=== PATIENT | male | born 1935 | race Caucasian/White ===

== ENCOUNTER 2018-09-06 17:32 | Observation (INO) | payer MEDICARE, OTHER, SELFPAY ==
[2018-09-06] VITALS (7 sets, daily range): BP systolic 116–133; BP diastolic 45–83; PULSE 63–67; RESP 16–18; TEMP 36.7–36.8; O2SAT 97–100; BMI 31.8; BMI 32.0
[2018-09-06 19:02] LABS: Bacteria 0 SEEN /hpf (None Seen); Mucous, Urine 0 SEEN /hpf (<or=2+); Red Blood Cells-Urine 0 SEEN /hpf (0-5); Squamous Epithelial Cells - UA 0 SEEN /hpf (0-5)
[2018-09-06 19:05] LABS: Absolute Lymphocyte Count 0.79 X10^3/ul (0.83-4.51); Absolute Neutrophil Count 2.6 X10^3/uL (2.0-7.7); Basophil# 0.01 X10^3/uL; Basophil% 0.3 % (0-1); Eosinophil# 0.15 X10^3/uL; Hemoglobin 9.9 g/dl (13.0-16.5); Lymphocyte # 0.79 X10^3/ul (4.0); Lymphocyte % 20.8 % (19-41); Mean Corp Hgb Conc 31.9 g/gl (32-36); Mean Corpuscular Hgb 31.5 pg (27.0-32.0); Mean Corpuscular Volume 98.7 fL (80-94); Mean Platelet Vol. 11.1 fl (6.2-12.0); Monocyte# 0.24 X10^3/uL; Monocyte% 6.3 % (0-10); Neutrophil # 2.59 X10^3/uL (2.7-7.7); Neutrophil % 68.3 % (47-70); Platelet Count 77 K/mm3 (150-450); RBC Distribution Width CV 16.9 % (11.6-14.6); RBC Distribution Width SD 60.7 fl (35.1-43.9); Red Blood Count 3.14 M/mm3 (4.6-6.2); White Blood Count 3.8 K/mm3 (4.4-11.0)
[2018-09-06 19:09] LABS: Color, Urine Yellow (Yellow); Glucose, Dipstick Normal (Normal); Ketone-Dipstick Negative (Negative); Leukocyte Esterase-Dipstick 25 /ul (Negative); Nitrite-Dipstick Negative (Negative); Occult Blood-Urine Negative /ul (Negative); Protein-Dipstick 30 mg/dl (Negative); Specific Gravity, Urine 1.015 (1.002-1.030); Urine Bilirubin Dipstick Negative (Negative); Urine Clarity Clear (Clear); Urine Urobilinogen Normal (Normal)
[2018-09-06 19:17] LABS: White Blood Cells 0-5 SEEN /hpf (0-5)
[2018-09-06 19:23] LABS: AST(SGOT) 40 U/L (15-37); Alanine Aminotransfer ALT/SGPT 31 U/L (16-61); Albumin, Serum 3.8 g/dL (3.2-5.0); Alkaline Phosphatase 128 U/L (45-117); Anion Gap 7 (5-15); BUN 19 mg/dL (7-18); Calcium,Total 8.8 mg/dL (8.5-10.1); Chloride 110 mmol/L (98-107); Creatinine, Serum 1.12 mg/dL (0.70-1.30); EST Glomerular Filtration Rate 67 mL/min (>60); Est Glom Filt Rate - Afr Amer 81 mL/min (>60); Glucose 80 mg/dL (74-106); Potassium 3.7 mmol/L (3.5-5.1); Protein, Total 7.8 g/dL (6.4-8.2); Sodium Level 143 mmol/L (136-145)
[2018-09-06 20:10] LABS: International Normalized Ratio 1.3; Prothrombin Time (Protime)PT. 16.6 SECONDS (11.7-14.9)
[2018-09-06 20:18] LABS: POSITIVE COUNT NO; POSITIVE DIFFERENTIAL NO; POSITIVE MORPHOLOGY NO
--- NOTE | 2018-09-06 20:55 | HP.PCM_ITS ---
Problem List (1) Penile bleeding Status: Acute History of Present Illness Date of Admission: 09/06/18 Chief Complaint: bleeding at perineal area The patient is a 83 year old M with a significant history of CAD status post CABG on May 18, 1990; hypertension; permanent pacemaker with ICD; basal cell carcinoma; bladder cancer status post tumor removal and chemotherapy who presents with 3 days of progressively worsening intermittent bleeding in his perineal area. Patient is unsure whether the bleeding is coming from his penile area or from his rectum. Associated with his symptoms is weakness. Past Medical History Medical History: Medical History (Last Updated 09/06/18 @ 21:40 by Tien Escalante MD) Hypertension I10 Allergies No Known Allergies Allergy (Verified 09/06/18 17:36) Home Medications: Ambulatory Orders Medication Instructions Recorded Allopurinol [Zyloprim] 100 mg PO BIDCM 07/17/14 Aspirin E.C. [Ecotrin] 81 mg PO DAILY@0800 07/17/14 Calcipotriene/Betamethasone 60 gm TP DAILY 07/17/14 [Calcipotriene-Betameth Dp Oint] Clobetasol Propionate/Emoll 30 gm TP DAILY PRN PRN 07/17/14 [Clobetasol Emollient 0.05% Crm] Clobetasol Propionate/Emoll 30 gm TP DAILY PRN PRN 07/17/14 [Clobetasol Emollient 0.05% Crm] [place] Tar [Cutar] 177 ml TP DAILY PRN PRN 07/17/14 Finasteride [Proscar] 5 mg PO DAILY 07/17/14 Fluticasone 0.05% [Flonase Nasal 2 spray NASAL DAILY PRN PRN 07/17/14 [place]] Fluticasone Propionate [Cutivate] 30 gm TP BID 07/17/14 Furosemide [Lasix] 20 mg PO DAILY 07/17/14 Glimepiride [Amaryl] 2 mg PO DAILY 07/17/14 Ketoconazole [Nizoral] 120 ml TP DAILY PRN PRN 07/17/14 Lidocaine 2% Viscous [Xylocaine 15 ml GT 4X/DAY PRN PRN 07/17/14 Viscous] Losartan Potassium [Cozaar] 100 mg PO DAILY 07/17/14 Metformin HCl [Glucophage] 1,000 mg PO BIDCM 07/17/14 Metoprolol Tartrate [Lopressor 50 mg PO BID 07/17/14 (beta adrian)] Multivit-Min/FA/Lycopene/Lut 1 each PO DAILY 07/17/14 [Centrum Silver Tablet] Mupirocin [Bactroban] 1 applic TOPICAL TID 07/17/14 Nitroglycerin [Nitrostat] 0.4 mg SUBLINGUAL Q5M PRN 07/17/14 Olopatadine HCl [Patanol] 1 drop EACH EYE BID 07/17/14 Phenylephrine HCl/Prometh HCl 5 ml PO Q4H PRN PRN 07/17/14 [Promethazine Vc Syrup] Simvastatin [Zocor] 20 mg PO QHS 07/17/14 Spironolactone [Aldactone] 50 mg PO DAILY 07/17/14 Tamsulosin HCl [Flomax] 0.4 mg PO QHS 07/17/14 Zolpidem Tartrate [Ambien] 10 mg PO QHS PRN PRN 07/17/14 Hydrocodone Bitart/Apap 5-325 0.5 - 1 tablet PO Q4H PRN PRN #20 03/03/15 [[place] 5MG-325MG] tablet Surgical History: coronary bypass surgery, - - Tumor removal from bladder. Smoking Status: Former smoker Alcohol: Occasional - *Family History Maternal Family History: Family History (Last Updated 09/06/18 @ 21:40 by Tien Escalante MD) Sister Basal cell carcinoma Review of Systems Constitutional: Reports: Weakness HEENT: Denies: Head Aches, Sinus Congestion, Sinus Drainage Cardiovascular: Denies: Chest Pain, Palpitations Respiratory: Denies: Cough, Shortness of breath at rest, Sputum production Gastrointestinal: Denies: Abdominal Pain, Nausea, Vomiting Genitourinary: Denies: Dysuria Musculoskeletal: Denies: Joint Pain, Joint Tenderness Skin: Denies: Rash, Wounds Neurological: Denies: Numbness, Tingling, Focal weakness Psychiatric: Denies: Anxiety, Depression, Homicidal Ideations, Suicidal Ideations Hematologic/ Lymphatic: Denies: Easy Bruising, Easy Bleeding VTE Information - Inpt Only VTE Present on Admission: No VTE Mechan Device Prophylaxis: SCD's VTE Pharm Prophylaxis ordered?: No Patient Problems: Active and Suspected Problems (Last Updated 09/06/18 @ 21:40 by Tien Escalante MD) Penile bleeding (Acute) - Physical Exam General: Alert, Oriented x3, Cooperative HEENT: Atraumatic, PERRLA, EOMI, Normocephalic Neck: Supple, No JVD, Negative Carotid Bruits Lungs: Clear to auscultation, Normal air movement Cardiovascular: Regular rate, No murmurs Abdomen: Bowel Sounds Present, Soft, Non Tender, - - Glan penis with bruises. Old blood on rectum. Extremities: No edema, Capillary Refill Less than 3 Seconds Skin: No rashes, No breakdown Musculoskeletal: No Tenderness to Palpation of Joints or Extremities Neurological: Neuro grossly intact, - - HARD OF HEARING Psych/Mental Status: Normal Affect, Appropriate Vital Signs Temp Pulse Resp BP Pulse Ox 98.3 F 63 18 116/52 L 97 09/06/18 17:33 09/06/18 18:48 09/06/18 17:33 09/06/18 19:55 09/06/18 19:55 Oxygen Delivery Method Room Air Weight: 100.698 kg Body Mass Index (BMI) 31.8 Microbiology Past 72 Hours 09/06/18 19:45 Stool Occult Blood (VINI) - Final Stool Laboratory Tests Past 24 Hrs 09/06/18 09/06/18 09/06/18 18:50 18:50 18:50 WBC 3.8 L RBC 3.14 L Hgb 9.9 L Hct 31.0 L MCV 98.7 H MCH 31.5 MCHC 31.9 L RDW 16.9 H RDW Differential 60.7 H Plt Count 77 L MPV 11.1 Immature Gran % (Auto) 0.300 Neut % (Auto) 68.3 Lymph % (Auto) 20.8 [place] % (Auto) 6.3 Eos % (Auto) 4.0 Baso % (Auto) 0.3 Absolute Neuts (auto) 2.6 Absolute Lymphs (auto) 0.79 L Total Counted Not Reportable PT 16.6 H INR 1.3 APTT 34.0 Sodium 143 Potassium 3.7 Chloride 110 H Carbon Dioxide 26.0 Anion Gap 7 BUN 19 H Creatinine 1.12 Estim Creat Clear Calc 52.50 Est GFR (MDRD) Af Amer 81 Est GFR (MDRD) Non-Af 67 BUN/Creatinine Ratio 17.0 Glucose 80 Calcium 8.8 Total Bilirubin 1.10 H AST 40 H ALT 31 Alkaline Phosphatase 128 H Total Protein 7.8 Albumin 3.8 Globulin 4.0 Albumin/Globulin Ratio 1.0 Urine Color Urine Clarity Urine pH Ur Specific [place] Urine Protein Urine Glucose (UA) Urine Ketones Urine Occult Blood Urine Nitrite Urine Bilirubin Urine Urobilinogen Ur Leukocyte Esterase Urine RBC Urine WBC Ur Squamous Epith Cells Urine Bacteria Urine Mucus 09/06/18 18:50 WBC RBC Hgb Hct MCV MCH MCHC RDW RDW Differential Plt Count MPV Immature Gran % (Auto) Neut % (Auto) Lymph % (Auto) [place] % (Auto) Eos % (Auto) Baso % (Auto) Absolute Neuts (auto) Absolute Lymphs (auto) Total Counted PT INR APTT Sodium Potassium Chloride Carbon Dioxide Anion Gap BUN Creatinine Estim Creat Clear Calc Est GFR (MDRD) Af Amer Est GFR (MDRD) Non-Af BUN/Creatinine Ratio Glucose Calcium Total Bilirubin AST ALT Alkaline Phosphatase Total Protein Albumin Globulin Albumin/Globulin Ratio Urine Color Yellow Urine Clarity Clear Urine pH 6.0 Ur Specific [place] 1.015 Urine Protein 30 H Urine Glucose (UA) Normal Urine Ketones Negative Urine Occult Blood Negative Urine Nitrite Negative Urine Bilirubin Negative Urine Urobilinogen Normal Ur Leukocyte Esterase 25 H Urine RBC 0 SEEN Urine WBC 0-5 SEEN Ur Squamous Epith Cells 0 SEEN Urine Bacteria 0 SEEN Urine Mucus 0 SEEN Assessment/Plan All Active Problems (Last Updated 09/06/18 @ 21:40 by Tien Escalante MD) Penile bleeding (Acute) The patient is a 83 year old M with a significant history of CAD status post CABG on May 18, 1990; hypertension; permanent pacemaker with ICD; basal cell carcinoma; bladder cancer status post tumor removal and chemotherapy who presents with 3 days of progressively worsening bleeding in his perineal area and found to have bruises on his glans penis.. Penile bleeding Physical examination showed bruises on his glans penis. His bleeding probably is from his glans penis. Occult stools X 1 unremarkable at the ED. With bruised glans penis no further occult stools ordered at this time. Will apply Bactroban at the glans penis 3 times daily. Gentle fluid hydration with NSS 60 mL's per hour. CBC in a.m. Okay to discharge patient if his H&H is stable. Will hold aspirin. Orthostatics were negative at the ED Orthostatic vitals x 1 in am. Hold home blood pressure meds. Thrombocytopenia Patient saw Dr. Hernandez outpatient and was asked to be taking iron supplement and follow-up with PCP for monitoring. Patient reported that his platelets recently was 74 and then it went to 88. On admission his platelet is 77; which is stable. CBC in a.m. If CBC stable patient can be discharged home and follow-up with PCP. CAD status post CABG Aspirin held. Hypertension His blood pressure on admission was fairly controlled. We will hold home anti-hypertensive medication because of bleeding As needed labetalol ordered. Diabetes mellitus On un-reconciled home medication is metformin and glimepiride. Blood glucose on admission was 80 on BMP. We will order Accu-Cheks Q12 with no correction scale Basal cell carcinoma of the face Patient has established care outpatient; and he will follow up outpatient. DVT prophylaxis SCD. No chemical thromboprophylaxis because of bleeding. Miscellaneous : Patient will let a family member bring his home list. If not we can request from [facility] if patient continue to stay at the hospital. Code Visit OBSV E&M: [id number] Initial observation care L3
--- NOTE | 2018-09-06 21:03 | ED.VISSUMM ---
- ER Visit Summary Date of Service: 09/06/18 Chief Complaint: Blood in underwear History of Present Illness: The patient is a 83 M who noted blood in his underwear starting 3 days ago. It started with a small rust colored tinged and then has become more pronounced over the last 3 days. This is an intermittent finding for him. His urine seemed to be more dark than usual, but he did not notice any bright red blood. He has not noticed any blood in his stool. He is not sure where the blood is coming from. He denies any pain or fevers. He never had this before. He does take aspirin but denies any other blood thinners. He has a remote history of bladder cancer and bladder surgery. He has a history of pancytopenia. He has seen Dr. Hernandez for low platelets. He was advised to follow-up with his primary care doctor for monitoring. He was also started on iron for anemia. Physical Examination: Afebrile and vital signs unremarkable. The patient is nontoxic and in no acute distress. Sitting comfortably. Skin is slightly pale but otherwise unremarkable. Heart regular rate and rhythm. Lungs clear. Abdomen soft and nontender. Rectal exam was nontender with no blood. and perineal exam did not show evidence of bleeding. Test Results: White count stable at 3.5. Hemoglobin stable 9.9. Platelets are 77. He said they have been running from the 70s up to 80. Metabolic panel and coags unremarkable. Fecal Hemoccult testing was negative. Urinalysis showed no blood. Emergency Department Course and Treatment: Patient remained stable. His orthostatics were negative. I am not sure where the patient is experiencing bleeding or if this is bleeding at all. He is stable and his lab work appears to be stable. I am concerned however given his thrombocytopenia. If he does have GI bleeding and his platelets drop any further, he may need transfusion. I am also concerned given his age. I did contact the hospitalist who will observe the patient for any signs of bleeding. Treatment Plan: As above Disposition: Medical surg observation on telemetry Impression: 1. Suspected GI bleed 2. Thrombocytopenia This note was generated with [employer] dictation software. It may contain incorrect words, spelling, and punctuation that were not noted in review of the chart prior to signing ED Disposition - Plan for ED Patient: Chief Complaint: GI Bleed
[2018-09-06] MEDS: 0.45% Normal Saline 1,000 ML 60 ML IV (22:12)
[2018-09-06] MEDS: Mupirocin Ointment 22gm Tube 1 APPLIC TOPICAL (22:49)
[2018-09-07 02:29] VITALS: PULSE 65
[2018-09-07 03:08] VITALS: BP 124/54; PULSE 72; RESP 14; TEMP 36.9; O2SAT 97
[2018-09-07] MEDS: Mupirocin Ointment 22gm Tube 1 APPLIC TOPICAL ×2 (05:48→14:31)
[2018-09-07 06:06] LABS: Bedside Glucose 85 mg/dL (70-110)
[2018-09-07 06:35] LABS: Absolute Lymphocyte Count 0.62 X10^3/ul (0.83-4.51); Absolute Neutrophil Count 1.8 X10^3/uL (2.0-7.7); Basophil# 0.01 X10^3/uL; Basophil% 0.4 % (0-1); Eosinophil# 0.09 X10^3/uL; Eosinophils% 3.3 % (0-5); Hematocrit 27.5 % (40-54); Hemoglobin 8.8 g/dl (13.0-16.5); Lymphocyte # 0.62 X10^3/ul (4.0); Lymphocyte % 22.5 % (19-41); Mean Corpuscular Hgb 31.8 pg (27.0-32.0); Mean Corpuscular Volume 99.3 fL (80-94); Mean Platelet Vol. 10.2 fl (6.2-12.0); Monocyte# 0.25 X10^3/uL; Monocyte% 9.1 % (0-10); Neutrophil # 1.79 X10^3/uL (2.7-7.7); Neutrophil % 64.7 % (47-70); Platelet Count 64 K/mm3 (150-450); RBC Distribution Width CV 16.3 % (11.6-14.6); RBC Distribution Width SD 56.5 fl (35.1-43.9); Red Blood Count 2.77 M/mm3 (4.6-6.2); White Blood Count 2.8 K/mm3 (4.4-11.0)
[2018-09-07 06:41] LABS: POSITIVE COUNT NO; POSITIVE DIFFERENTIAL NO; POSITIVE MORPHOLOGY NO
[2018-09-07 07:09] VITALS: O2SAT 94
[2018-09-07 07:30] VITALS: BP 126/41; PULSE 72; RESP 18; TEMP 37.2; O2SAT 95
[2018-09-07 11:30] VITALS: BP 133/42; PULSE 72; RESP 18; TEMP 37.2; O2SAT 97
[2018-09-07] MEDS: 0.45% Normal Saline 1,000 ML 60 ML IV (12:32)
--- NOTE | 2018-09-07 13:20 | PCM.DC ---
- Discharge Diagnoses Current Active Problems: Current Active and Chronic Problems (Last Updated 09/06/18 @ 21:40 by Tien Escalante MD) Penile bleeding (Acute) You will use the following diet at home:: No restrictions Your food should be the consistency of: Regular Your liquids should be the consistency of: Regular/Thin Discharge Activity: Return to Normal Activity Allergies/Adverse Reactions: Allergies No Known Allergies Allergy (Verified 09/06/18 17:36) Medications to take at Discharge Allopurinol [Zyloprim] 100 mg PO BIDCM 07/17/14 Finasteride [Proscar] 5 mg PO DAILY 07/17/14 Fluticasone 0.05% [Flonase Nasal [place]] 2 spray NASAL DAILY PRN PRN 07/17/14 Furosemide [Lasix] 20 mg PO DAILY 07/17/14 Glimepiride [Amaryl] 2 mg PO DAILY 07/17/14 Lidocaine 2% Viscous [Xylocaine Viscous] 15 ml PO 4X/DAY PRN PRN 07/17/14 Multivit-Min/FA/Lycopene/Lut [Centrum Silver Tablet] 1 each PO DAILY 07/17/14 Nitroglycerin [Nitrostat] 0.4 mg SUBLINGUAL Q5M PRN 07/17/14 Simvastatin [Zocor] 20 mg PO QHS 07/17/14 Spironolactone [Aldactone] 50 mg PO DAILY 07/17/14 Acetaminophen [Tylenol Extra Strength] 500 mg PO Q6H PRN PRN 09/07/18 Calcium 600-Vit D3 200 Tablet 1 tab PO DAILY 09/07/18 Ferrous Sulfate 1 tab PO DAILY 09/07/18 Fluocinonide/Emollient Base [Fluocinonide-E 0.05% Cream] 1 applicatio TOPICAL BID 09/07/18 Isosorbide Mononitrate [Isosorbide Mononitrate ER] 30 mg PO DAILY 09/07/18 Metformin HCl [Glucophage] 850 mg PO BIDCM 09/07/18 Metoprolol Tartrate 25 mg PO BID 09/07/18 Mometasone Furoate [[place]] 15 gm TP DAILY PRN 09/07/18 Orders to be completed after discharge: HH, Hemoglobin & Hematocrit Time Frame: 5 Days, Location: Laboratory Primary Care Physician: Roberto Hoang MD [Primary Care Provider] - Please follow up with your Primary Care Physician in: 3-5 days Test Results: Test results from this visit will be discussed in further detail at your follow-up appointment, if applicable. Proposed Discharge Date: 09/07/18
--- NOTE | 2018-09-07 13:24 | PCM.DC.SUM ---
<Derek Camp - Last Filed: 09/07/18 13:24> Discharge Date and Diagnosis - Problem List Patient Problems: Active and Suspected Problems (Last Updated 09/06/18 @ 21:40 by Tien Escalante MD) Penile bleeding (Acute) Date of Admission: 09/06/18 Date of Discharge: 09/07/18 - Primary Discharge Diagnosis Active and Suspected Problems (Last Updated 09/06/18 @ 21:40 by Tien Escalante MD) Penile bleeding (Acute) 2/2 bruising around glans and low platelets, aspirin therapy Anemia unclear whether acute vs chronic Pancytopenia Hx Bladder and Prostate Cancer CAD prior CABG Pacer/AICD Basal cell carcinoma Hospital Course and Treatment Operations: None Procedures: None Summary of Care Provided: Hospital course: The patient is a 83 year old M with pmhx as above on aspirin for CAD and with low platelets (pancytopenic), hx prostate and bladder cancer who presented to the ER with complaints of blood in the toil from unclear source. He was not sure if this was urethral, rectal, or otherwise. He had noticed some blood in his underwear as well. He denies pain, irritation, or wounds. He was pancytopenic. He was admitted to monitor for further bleeding and for worsening anemia. Aspirin was discontinued. He complained of more blood in the toil. On exam he appeared to have bleeding from the skin of the glans of the penis where he had bilateral bruising. There was some blood on his leg. Urinalysis showed no blood in his urine. Stool occult blood was negative. The bruising was felt to be the site of bleeding, possibly due to thrombocytopenia and aspirin. He denies any recent sex in years, and had no other mechanical trauma to the area including masturbation, abrasions, blunt trauma, etc, and continued to not have symptoms like pain, pruritis, or burning. He had no further bleeding after that and no dizziness/LH/SOB. We advised that he follow up with his PCP in 3-5 days and in the meantime discontinue aspirin. He will need an CBC in 3 days and to monitor for further bleeding. He was discharged home in stable condition. This patient was seen by Derek Camp PA-C under the supervision of Doctor Wall. [] Patient Problems: Active and Suspected Problems (Last Updated 09/06/18 @ 21:40 by Tien Escalante MD) Penile bleeding (Acute) - Physical Exam General: Alert, Oriented x3, Cooperative HEENT: Atraumatic, PERRLA, EOMI, Normocephalic Neck: Supple, No JVD, Negative Carotid Bruits Lungs: Clear to auscultation, Normal air movement Cardiovascular: Regular rate, No murmurs Abdomen: Bowel Sounds Present, Soft, Non Tender Extremities: No edema, Capillary Refill Less than 3 Seconds Skin: - - glans penis bilateral bruising, scant old blood present Musculoskeletal: No Tenderness to Palpation of Joints or Extremities Neurological: Cranial nerves II-XII grossly intact Psych/Mental Status: Normal Affect, Appropriate, Alert and oriented to time, place, person, mood and affect Vital Signs Temp Pulse Resp BP Pulse Ox 99.0 F 72 18 133/42 H 97 09/07/18 11:30 09/07/18 11:30 09/07/18 11:30 09/07/18 11:30 09/07/18 11:30 Oxygen Delivery Method Room Air Weight: 223 lb 1.725 oz Body Mass Index (BMI) 32.0 Intake and Output for Last 24 Hours 09/05/18 09/06/18 09/07/18 23:59 23:59 23:59 Intake Total 2013.1 Balance 2013. Microbiology Past 72 Hours 09/06/18 19:45 Stool Occult Blood (VINI) - Final Stool Laboratory Tests Past 24 Hrs 09/06/18 09/06/18 09/06/18 18:50 18:50 18:50 WBC 3.8 L RBC 3.14 L Hgb 9.9 L Hct 31.0 L MCV 98.7 H MCH 31.5 MCHC 31.9 L RDW 16.9 H RDW Differential 60.7 H Plt Count 77 L MPV 11.1 Immature Gran % (Auto) 0.300 Neut % (Auto) 68.3 Lymph % (Auto) 20.8 [place] % (Auto) 6.3 Eos % (Auto) 4.0 Baso % (Auto) 0.3 Absolute Neuts (auto) 2.6 Absolute Lymphs (auto) 0.79 L Total Counted Not Reportable PT 16.6 H INR 1.3 APTT 34.0 Sodium 143 Potassium 3.7 Chloride 110 H Carbon Dioxide 26.0 Anion Gap 7 BUN 19 H Creatinine 1.12 Estim Creat Clear Calc 52.50 Est GFR (MDRD) Af Amer 81 Est GFR (MDRD) Non-Af 67 BUN/Creatinine Ratio 17.0 Glucose 80 Calcium 8.8 Total Bilirubin 1.10 H AST 40 H ALT 31 Alkaline Phosphatase 128 H Total Protein 7.8 Albumin 3.8 Globulin 4.0 Albumin/Globulin Ratio 1.0 Urine Color Urine Clarity Urine pH Ur Specific [place] Urine Protein Urine Glucose (UA) Urine Ketones Urine Occult Blood Urine Nitrite Urine Bilirubin Urine Urobilinogen Ur Leukocyte Esterase Urine RBC Urine WBC Ur Squamous Epith Cells Urine Bacteria Urine Mucus 09/06/18 09/07/18 18:50 06:00 WBC 2.8 L RBC 2.77 L Hgb 8.8 L Hct 27.5 L MCV 99.3 H MCH 31.8 MCHC 32.0 RDW 16.3 H RDW Differential 56.5 H Plt Count 64 L MPV 10.2 Immature Gran % (Auto) 0.000 Neut % (Auto) 64.7 Lymph % (Auto) 22.5 [place] % (Auto) 9.1 Eos % (Auto) 3.3 Baso % (Auto) 0.4 Absolute Neuts (auto) 1.8 L Absolute Lymphs (auto) 0.62 L Total Counted Not Reportable PT INR APTT Sodium Potassium Chloride Carbon Dioxide Anion Gap BUN Creatinine Estim Creat Clear Calc Est GFR (MDRD) Af Amer Est GFR (MDRD) Non-Af BUN/Creatinine Ratio Glucose Calcium Total Bilirubin AST ALT Alkaline Phosphatase Total Protein Albumin Globulin Albumin/Globulin Ratio Urine Color Yellow Urine Clarity Clear Urine pH 6.0 Ur Specific [place] 1.015 Urine Protein 30 H Urine Glucose (UA) Normal Urine Ketones Negative Urine Occult Blood Negative Urine Nitrite Negative Urine Bilirubin Negative Urine Urobilinogen Normal Ur Leukocyte Esterase 25 H Urine RBC 0 SEEN Urine WBC 0-5 SEEN Ur Squamous Epith Cells 0 SEEN Urine Bacteria 0 SEEN Urine Mucus 0 SEEN POC Glucose 09/07/18 05:46 POC Glucose 85 Discharge Diet: Low fat/ Low Cholesterol, 2000 mg Sodium Diet Discharge Activity: Return to Normal Activity Home Medications: Medications to take at Discharge Allopurinol [Zyloprim] 100 mg PO BIDCM 07/17/14 Finasteride [Proscar] 5 mg PO DAILY 07/17/14 Fluticasone 0.05% [Flonase Nasal [place]] 2 spray NASAL DAILY PRN PRN 07/17/14 Furosemide [Lasix] 20 mg PO DAILY 07/17/14 Glimepiride [Amaryl] 2 mg PO DAILY 07/17/14 Lidocaine 2% Viscous [Xylocaine Viscous] 15 ml PO 4X/DAY PRN PRN 07/17/14 Multivit-Min/FA/Lycopene/Lut [Centrum Silver Tablet] 1 each PO DAILY 07/17/14 Nitroglycerin [Nitrostat] 0.4 mg SUBLINGUAL Q5M PRN 07/17/14 Simvastatin [Zocor] 20 mg PO QHS 07/17/14 Spironolactone [Aldactone] 50 mg PO DAILY 07/17/14 Acetaminophen [Tylenol Extra Strength] 500 mg PO Q6H PRN PRN 09/07/18 Calcium 600-Vit D3 200 Tablet 1 tab PO DAILY 09/07/18 Ferrous Sulfate 1 tab PO DAILY 09/07/18 Fluocinonide/Emollient Base [Fluocinonide-E 0.05% Cream] 1 applicatio TOPICAL BID 09/07/18 Isosorbide Mononitrate [Isosorbide Mononitrate ER] 30 mg PO DAILY 09/07/18 Metformin HCl [Glucophage] 850 mg PO BIDCM 09/07/18 Metoprolol Tartrate 25 mg PO BID 09/07/18 Mometasone Furoate [Elocon] 15 gm TP DAILY PRN 09/07/18 Other Amb Orders: CBC-Complete Blood Cnt No Diff Time Frame: 3 Days, Location: Laboratory HH, Hemoglobin & Hematocrit Time Frame: 5 Days, Location: Laboratory Primary Care Physician: Roberto Hoang MD [Primary Care Provider] - Please follow up with your Primary Care Physician in: 3-5 days Disposition: Home Minutes spent on discharge:: 35 Patient Condition:: Stable Medical Necessity - Tobacco Use Smoking Status: Former smoker Meaningful Use Info Meaningful Use Diagnoses (Choose all that apply): None applicable <Randal Wall E - Last Filed: 09/07/18 13:47> Discharge Date and Diagnosis - Primary Discharge Diagnosis Active and Suspected Problems (Last Updated 09/06/18 @ 21:40 by Tien Escalante MD) Penile bleeding (Acute) Hospital Course and Treatment Summary of Care Provided: Hospitalist note: Discharge summary above reviewed and I agree with above discharge plan. Patient was admitted for blood in the toilet from unclear source. He noticed some blood in his underwear. He was found to have pancytopenia with mild leukopenia, thrombocytopenia and normocytic anemia. His absolute neutrophil count was normal. His hemoglobin back in 2014 was 9.8 g/dL. During this hospital stay, it was 9.9 g/dL on admission and came down to 8.8 g/dL today. His stool was negative for occult blood his urinalysis was negative for WBCs microscopically. When I examined the patient, there was no evidence of bleeding from his rectum or penis and there was no evidence of local skin bruises or skin changes. He does have bruises in the glans penis but there was no active bleeding. There was no clear source of bleeding identified. His vital signs were stable throughout admission. His pro time was 16.6 and INR was 1.3. His BNP was normal. His platelet was 64,000. Patient is aware that he has low platelet count and recently, he was asked to take aspirin 81 mg p.o. every other day. He was observed and he has no more bleeding. Patient discharged home in a stable medical condition, requested to stop taking aspirin for now, repeat H&H in 5 days, follow-up with PCP in 3-5 days. - Physical Exam General: Alert, Oriented x3, Cooperative, No apparent distress. HEENT: Atraumatic, PERRLA, EOMI. Neck: Supple, No JVD, Negative Carotid Bruits, Trachea Midline, Thyroid Normal. Lungs: Clear to auscultation, Normal air movement, No rhonchi, No wheeze, No rales. Cardiovascular: Regular rate, Regular Rhythm, Normal S1, Normal S2, PMI Normal. Abdomen: Bowel Sounds Present, Soft, Non Tender, Non-Distended, No Hepato-splenomegaly. Extremities: No clubbing, No cyanosis, No edema Skin: No rashes, No breakdown Neurological: Neuro grossly intact Vital Signs are stable. This note was generated with [employer] dictation software. It may contain incorrect words, spelling, and punctuation that were not noted in checking the note before signing. - Physical Exam Vital Signs Temp Pulse Resp BP Pulse Ox 99.0 F 72 18 133/42 H 97 09/07/18 11:30 11/17/18 11:30 09/07/18 11:30 09/07/18 11:30 09/07/18 11:30 Oxygen Delivery Method Room Air Weight: 223 lb 1.725 oz Body Mass Index (BMI) 32.0 Intake and Output for Last 24 Hours 09/05/18 09/06/18 09/07/18 23:59 23:59 23:59 Intake Total 2013.1 Balance 2013. Microbiology Past 72 Hours 09/06/18 19:45 Stool Occult Blood (VINI) - Final Stool Laboratory Tests Past 24 Hrs 09/06/18 09/06/18 09/06/18 18:50 18:50 18:50 WBC 3.8 L RBC 3.14 L Hgb 9.9 L Hct 31.0 L MCV 98.7 H MCH 31.5 MCHC 31.9 L RDW 16.9 H RDW Differential 60.7 H Plt Count 77 L MPV 11.1 Immature Gran % (Auto) 0.300 Neut % (Auto) 68.3 Lymph % (Auto) 20.8 [place] % (Auto) 6.3 Eos % (Auto) 4.0 Baso % (Auto) 0.3 Absolute Neuts (auto) 2.6 Absolute Lymphs (auto) 0.79 L Total Counted Not Reportable PT 16.6 H INR 1.3 APTT 34.0 Sodium 143 Potassium 3.7 Chloride 110 H Carbon Dioxide 26.0 Anion Gap 7 BUN 19 H Creatinine 1.12 Estim Creat Clear Calc 52.50 Est GFR (MDRD) Af Amer 81 Est GFR (MDRD) Non-Af 67 BUN/Creatinine Ratio 17.0 Glucose 80 Calcium 8.8 Total Bilirubin 1.10 H AST 40 H ALT 31 Alkaline Phosphatase 128 H Total Protein 7.8 Albumin 3.8 Globulin 4.0 Albumin/Globulin Ratio 1.0 Urine Color Urine Clarity Urine pH Ur Specific [place] Urine Protein Urine Glucose (UA) Urine Ketones Urine Occult Blood Urine Nitrite Urine Bilirubin Urine Urobilinogen Ur Leukocyte Esterase Urine RBC Urine WBC Ur Squamous Epith Cells Urine Bacteria Urine Mucus 09/06/18 09/07/18 18:50 06:00 WBC 2.8 L RBC 2.77 L Hgb 8.8 L Hct 27.5 L MCV 99.3 H MCH 31.8 MCHC 32.0 RDW 16.3 H RDW Differential 56.5 H Plt Count 64 L MPV 10.2 Immature Gran % (Auto) 0.000 Neut % (Auto) 64.7 Lymph % (Auto) 22.5 [place] % (Auto) 9.1 Eos % (Auto) 3.3 Baso % (Auto) 0.4 Absolute Neuts (auto) 1.8 L Absolute Lymphs (auto) 0.62 L Total Counted Not Reportable PT INR APTT Sodium Potassium Chloride Carbon Dioxide Anion Gap BUN Creatinine Estim Creat Clear Calc Est GFR (MDRD) Af Amer Est GFR (MDRD) Non-Af BUN/Creatinine Ratio Glucose Calcium Total Bilirubin AST ALT Alkaline Phosphatase Total Protein Albumin Globulin Albumin/Globulin Ratio Urine Color Yellow Urine Clarity Clear Urine pH 6.0 Ur Specific [place] 1.015 Urine Protein 30 H Urine Glucose (UA) Normal Urine Ketones Negative Urine Occult Blood Negative Urine Nitrite Negative Urine Bilirubin Negative Urine Urobilinogen Normal Ur Leukocyte Esterase 25 H Urine RBC 0 SEEN Urine WBC 0-5 SEEN Ur Squamous Epith Cells 0 SEEN Urine Bacteria 0 SEEN Urine Mucus 0 SEEN POC Glucose 09/07/18 05:46 POC Glucose 85 Disposition: Home Minutes spent on discharge:: 24 Patient Condition:: Stable Meaningful Use Info Meaningful Use Diagnoses (Choose all that apply): None applicable Code Visit OBSV E&M: 84117 Observation care discharge
[2018-09-07 15:00] VITALS: BP 133/42; PULSE 72; RESP 18; TEMP 37.2; O2SAT 97
== END 2018-09-07 15:04 | disposition home or self-care (01) ==
LOC: ED 19:09 → MS3 21:27
PROVIDERS: Admitting Provider Hospitalist; Emergency Provider Emergency Medicine; Family Provider Internal Medicine; PCP Internal Medicine; Visit Provider Hospitalist
DX: N48.89 Other specified disorders of penis (principal); I25.10 Atherosclerotic heart disease of native coronary artery without angina pectoris; D61.818 Other pancytopenia; I10 Essential (primary) hypertension; C67.9 Malignant neoplasm of bladder, unspecified; Z95.1 Presence of aortocoronary bypass graft; Z79.899 Other long term (current) drug therapy; Z79.82 Long term (current) use of aspirin; Z79.52 Long term (current) use of systemic steroids; Z79.84 Long term (current) use of oral hypoglycemic drugs; Z95.0 Presence of cardiac pacemaker; Z95.810 Presence of automatic (implantable) cardiac defibrillator; Z87.891 Personal history of nicotine dependence; S30.21XA Contusion of penis, initial encounter; X58.XXXA Exposure to other specified factors, initial encounter; E11.9 Type 2 diabetes mellitus without complications; C44.310 Basal cell carcinoma of skin of unspecified parts of face; Z85.46 Personal history of malignant neoplasm of prostate
CPT/HCPCS: 36415; 80053; 81001; 82274; 82962; 85025; 85610; 85730; 97162; 97166; 97802; 99218; 99283; A4216; G0378

== ENCOUNTER → 2018-09-10 14:30 | Outpatient (CLI) | payer MEDICARE, OTHER, SELFPAY ==
[2018-09-06 21:42] VITALS: BMI 32.0
== END ==
PROVIDERS: Family Provider Internal Medicine; PCP Internal Medicine; Referring Provider Physician Assistant; Visit Provider Physician Assistant
DX: Z00.00 Encounter for general adult medical examination without abnormal findings (principal)

== ENCOUNTER → 2018-09-12 09:46 | Outpatient (CLI) | payer MEDICARE, OTHER, SELFPAY ==
[2018-09-06 21:42] VITALS: BMI 32.0
[2018-09-12 10:28] LABS: Absolute Lymphocyte Count 0.58 X10^3/ul (0.83-4.51); Absolute Neutrophil Count 2.1 X10^3/uL (2.0-7.7); Basophil# 0.01 X10^3/uL; Basophil% 0.3 % (0-1); Eosinophil# 0.12 X10^3/uL; Hematocrit 29.8 % (40-54); Hemoglobin 9.5 g/dl (13.0-16.5); Lymphocyte # 0.58 X10^3/ul (4.0); Lymphocyte % 19.5 % (19-41); Mean Corp Hgb Conc 31.9 g/gl (32-36); Mean Corpuscular Hgb 31.5 pg (27.0-32.0); Mean Corpuscular Volume 98.7 fL (80-94); Mean Platelet Vol. 9.5 fl (6.2-12.0); Monocyte% 6.7 % (0-10); Neutrophil # 2.07 X10^3/uL (2.7-7.7); Neutrophil % 69.5 % (47-70); Platelet Count 66 K/mm3 (150-450); RBC Distribution Width CV 17.3 % (11.6-14.6); RBC Distribution Width SD 61.5 fl (35.1-43.9); Red Blood Count 3.02 M/mm3 (4.6-6.2)
[2018-09-12 10:29] LABS: Differential Indicated SCAN CRITERIA MET; POSITIVE COUNT NO; POSITIVE DIFFERENTIAL YES; POSITIVE MORPHOLOGY NO
== END ==
PROVIDERS: Family Provider Internal Medicine; PCP Internal Medicine; Referring Provider Physician Assistant; Visit Provider Physician Assistant
DX: D64.9 Anemia, unspecified (principal); D61.818 Other pancytopenia
CPT/HCPCS: 85025